=== PATIENT | male | born 1985 | race African-American/Black ===

== ENCOUNTER 2017-08-25 17:03 | Emergency (ER) | payer OTHER ==
[~2017-08-25] VITALS: Ht 180.3 cm; Wt 142.2 kg
[2017-08-25 17:26] VITALS: BP 184/101
== END 2017-08-25 20:12 | disposition home or self-care (01) ==
LOC: ER 17:06
DX: K02.9 Dental caries, unspecified (principal); K04.7 Periapical abscess without sinus